=== PATIENT | female | born 1975 | race Caucasian/White ===

== ENCOUNTER 2020-06-06 14:53 | Inpatient (IN) | payer OTHER ==
[2020-06-06] MEDS ORDERED: cloNIDine HCL 0.1 MG TABLET PO PRN (15:52)
[2020-06-06] MEDS ORDERED: ONDANSETRON *ODT* 4 MG TABLET SL PRN (15:52)
[2020-06-06] MEDS ORDERED: MAGNESIUM HYDROX 2400MG/30ML ORAL SUSPENSION 30 ML CUP PO PRN (15:52)
[2020-06-06] MEDS ORDERED: ACETAMINOPHEN 325 MG TABLET (FP) PO PRN (15:52)
[2020-06-06] MEDS ORDERED: NICOTINE POLACRILEX 2 MG GUM BUC PRN (15:52)
[2020-06-06] MEDS ORDERED: MAGNESIUM CITRATE 300 ML BOTTLE PO PRN (15:52)
[2020-06-06] MEDS ORDERED: MAG HYDROX/AL HYDROX/SIMETH 30 ML UNIT-DOSE CUP PO PRN (15:52)
[2020-06-06] MEDS ORDERED: BISMUTH SUBSALICYLATE 524 MG/30 ML UD PO PRN (15:52)
[2020-06-06] MEDS ORDERED: MENTHOL/PHENOL 1 EACH UD MM PRN (15:52)
[2020-06-06 16:15] VITALS: BMI 24.3
[2020-06-06] MEDS ORDERED: METHADONE HCL 10 MG TABLET (FOR DETOX USE ONLY) PO ONE (17:15)
[2020-06-06] MEDS: diazePAM 5 MG TABLET PO PRN (17:28)
[2020-06-06] MEDS: NICOTINE 21 MG/24 HOURS TOPICAL PATCH TD SCH (17:29)
[2020-06-06] MEDS: METHOCARBAMOL 500 MG TABLET PO PRN (17:29)
[2020-06-06] MEDS: hydrOXYzine PAMOATE 25 MG CAPSULE (FP) PO SCH ×2 (17:57→22:13)
[2020-06-06] MEDS: APIXABAN 5 MG TABLET PO SCH (22:13)
[2020-06-06] MEDS: THIAMINE HCL 100 MG TABLET (FP) PO SCH (22:13)
[2020-06-06] MEDS: GABAPENTIN 300 MG CAPSULE PO SCH (22:13)
[2020-06-06] MEDS: diazePAM 5 MG TABLET PO SCH (22:13)
[2020-06-06] MEDS: MELATONIN 5 MG TABLETS PO SCH (22:13)
[2020-06-07] MEDS: ACETAMINOPHEN 325 MG TABLET (FP) PO PRN (01:51)
[2020-06-07] MEDS: METHOCARBAMOL 500 MG TABLET PO PRN ×3 (01:51→17:01)
[2020-06-07] MEDS: hydrOXYzine PAMOATE 25 MG CAPSULE (FP) PO SCH ×5 (06:02→22:28)
[2020-06-07] MEDS: diazePAM 5 MG TABLET PO SCH ×4 (06:02→22:33)
[2020-06-07] MEDS: LEVOTHYROXINE NA 75 MCG TABLET (FP) PO SCH (06:02)
[2020-06-07] MEDS: GABAPENTIN 300 MG CAPSULE PO SCH ×3 (06:02→22:27)
[2020-06-07] MEDS ORDERED: METHADONE HCL 10 MG TABLET (FOR DETOX USE ONLY) ONE (08:49)
[2020-06-07] MEDS ORDERED: METHADONE HCL 5 MG TABLET (FOR DETOX USE ONLY) ONE (08:49)
[2020-06-07] MEDS ORDERED: METHADONE (DETOX) 20 MG, METHADONE (DETOX) 5 MG PO ONE (10:00)
[2020-06-07] MEDS: PRENATAL VITAMINS W/ FOLIC ACID TABLET (FP) PO SCH (10:11)
[2020-06-07] MEDS: APIXABAN 5 MG TABLET PO SCH ×2 (10:11→22:28)
[2020-06-07] MEDS: NICOTINE 21 MG/24 HOURS TOPICAL PATCH TD SCH (10:13)
[2020-06-07 11:11] LABS: HEMOGLOBIN 9.9 GM/dL (10.7-15.3); MCH 24.3 pg (25.7-33.7); MCHC 31.9 g/dl (32.0-36.0); MEAN CELL VOLUME 76.1 fl (80-96); MEAN PLT VOLUME 8.9 fl (7.5-11.1); PLATELET COUNT 274 K/MM3 (134-434); POTASSIUM 3.8 mmol/L (3.5-5.1); RBC 4.07 M/mm3 (3.60-5.2); RDW 17.9 % (11.6-15.6); WHITE BLOOD COUNT 4.3 K/mm3 (4.0-10.0)
[2020-06-07 11:13] LABS: ALBUMIN 3.4 g/dl (3.4-5.0); BLOOD UREA NITROGEN 7.5 mg/dL (7-18); CALCIUM 8.7 mg/dL (8.5-10.1)
[2020-06-07 11:18] LABS: BILIRUBIN,TOTAL 0.3 mg/dL (0.2-1); TOT PROT 7.2 g/dl (6.4-8.2)
[2020-06-07] MEDS: diazePAM 5 MG TABLET PO PRN ×2 (12:20→19:38)
[2020-06-07] MEDS: IBUPROFEN 400 MG TABLET (FP) PO PRN ×2 (12:21→19:33)
[2020-06-07] MEDS: THIAMINE HCL 100 MG TABLET (FP) PO SCH (22:27)
[2020-06-07] MEDS: OLANZapine 5 MG TABLET PO SCH (22:27)
[2020-06-07] MEDS: MELATONIN 5 MG TABLETS PO SCH (22:28)
[2020-06-07] MEDS: DOXEPIN HCL 25 MG CAPSULE PO SCH (22:45)
[2020-06-08] MEDS: METHOCARBAMOL 500 MG TABLET PO PRN ×2 (04:24→22:16)
[2020-06-08] MEDS: diazePAM 5 MG TABLET PO PRN ×3 (04:24→15:26)
[2020-06-08] MEDS: ACETAMINOPHEN 325 MG TABLET (FP) PO PRN (04:25)
[2020-06-08] MEDS: hydrOXYzine PAMOATE 25 MG CAPSULE (FP) PO SCH ×2 (05:45→09:40)
[2020-06-08] MEDS: diazePAM 5 MG TABLET PO SCH ×3 (05:45→22:13)
[2020-06-08] MEDS: GABAPENTIN 300 MG CAPSULE PO SCH ×3 (05:45→22:14)
[2020-06-08] MEDS: LEVOTHYROXINE NA 75 MCG TABLET (FP) PO SCH (06:11)
[2020-06-08] MEDS: PRENATAL VITAMINS W/ FOLIC ACID TABLET (FP) PO SCH (09:39)
[2020-06-08] MEDS: APIXABAN 5 MG TABLET PO SCH ×2 (09:39→22:14)
[2020-06-08] MEDS: IBUPROFEN 400 MG TABLET (FP) PO PRN ×2 (09:39→15:26)
[2020-06-08] MEDS: CITALOPRAM HYDROBROMIDE 10 MG TABLET PO SCH (09:39)
[2020-06-08] MEDS: NICOTINE 21 MG/24 HOURS TOPICAL PATCH TD SCH (09:40)
[2020-06-08] MEDS ORDERED: METHADONE HCL 10 MG TABLET (FOR DETOX USE ONLY) PO ONE (10:00)
[2020-06-08] MEDS: FERROUS SO4 325 MG TABLET (FP) PO SCH (17:19)
[2020-06-08] MEDS: hydrOXYzine PAMOATE 25 MG CAPSULE (FP) PO PRN ×2 (17:20→22:14)
[2020-06-08] MEDS: THIAMINE HCL 100 MG TABLET (FP) PO SCH (22:14)
[2020-06-08] MEDS: DOXEPIN HCL 25 MG CAPSULE PO SCH (22:14)
[2020-06-08] MEDS: MELATONIN 5 MG TABLETS PO SCH (22:14)
[2020-06-08] MEDS: OLANZapine 5 MG TABLET PO SCH (22:14)
[2020-06-09] MEDS: diazePAM 5 MG TABLET PO PRN ×3 (01:01→14:31)
[2020-06-09] MEDS: IBUPROFEN 400 MG TABLET (FP) PO PRN (01:02)
[2020-06-09] MEDS: GABAPENTIN 300 MG CAPSULE PO SCH ×3 (05:35→22:08)
[2020-06-09] MEDS: diazePAM 5 MG TABLET PO SCH ×2 (05:35→17:07)
[2020-06-09] MEDS: LEVOTHYROXINE NA 25 MCG TABLET (FP) PO SCH (06:16)
[2020-06-09] MEDS: FERROUS SO4 325 MG TABLET (FP) PO SCH ×3 (07:48→17:07)
[2020-06-09] MEDS ORDERED: METHADONE HCL 10 MG TABLET (FOR DETOX USE ONLY) ONE (09:11)
[2020-06-09] MEDS ORDERED: METHADONE HCL 5 MG TABLET (FOR DETOX USE ONLY) ONE (09:12)
[2020-06-09] MEDS ORDERED: METHADONE (DETOX) 10 MG, METHADONE (DETOX) 5 MG PO ONE (10:00)
[2020-06-09] MEDS: APIXABAN 5 MG TABLET PO SCH ×2 (10:25→22:07)
[2020-06-09] MEDS: ACETAMINOPHEN 325 MG TABLET (FP) PO PRN (10:25)
[2020-06-09] MEDS: CITALOPRAM HYDROBROMIDE 10 MG TABLET PO SCH (10:25)
[2020-06-09] MEDS: PRENATAL VITAMINS W/ FOLIC ACID TABLET (FP) PO SCH (10:25)
[2020-06-09] MEDS: NICOTINE 21 MG/24 HOURS TOPICAL PATCH TD SCH (10:44)
[2020-06-09] MEDS: LIDOCAINE 5% TOPICAL PATCH TP SCH (12:29)
[2020-06-09] MEDS: ERYTHROMYCIN 0.5% OPHTHALMIC OINTMENT 3.5 GM TUBE OD SCH (12:29)
[2020-06-09] MEDS: MELATONIN 5 MG TABLETS PO SCH (22:07)
[2020-06-09] MEDS: DOXEPIN HCL 25 MG CAPSULE PO SCH (22:07)
[2020-06-09] MEDS: OLANZapine 5 MG TABLET PO SCH (22:07)
[2020-06-09] MEDS: THIAMINE HCL 100 MG TABLET (FP) PO SCH (22:07)
[2020-06-09] MEDS: LIDOCAINE PATCH REMOVAL MC SCH (22:08)
[2020-06-10] MEDS: IBUPROFEN 400 MG TABLET (FP) PO PRN ×2 (05:43→13:52)
[2020-06-10] MEDS: GABAPENTIN 300 MG CAPSULE PO SCH ×3 (05:44→22:03)
[2020-06-10] MEDS ORDERED: diazePAM 5 MG TABLET PO ONE (06:00)
[2020-06-10] MEDS: LEVOTHYROXINE NA 25 MCG TABLET (FP) PO SCH (06:57)
[2020-06-10] MEDS: FERROUS SO4 325 MG TABLET (FP) PO SCH ×3 (07:01→17:23)
[2020-06-10] MEDS: PRENATAL VITAMINS W/ FOLIC ACID TABLET (FP) PO SCH (09:26)
[2020-06-10] MEDS: CITALOPRAM HYDROBROMIDE 10 MG TABLET PO SCH (09:26)
[2020-06-10] MEDS: APIXABAN 5 MG TABLET PO SCH ×2 (09:26→22:06)
[2020-06-10] MEDS: NICOTINE 21 MG/24 HOURS TOPICAL PATCH TD SCH (09:27)
[2020-06-10] MEDS: LIDOCAINE 5% TOPICAL PATCH TP SCH (09:27)
[2020-06-10] MEDS: ERYTHROMYCIN 0.5% OPHTHALMIC OINTMENT 3.5 GM TUBE OD SCH (09:28)
[2020-06-10] MEDS ORDERED: METHADONE HCL 10 MG TABLET (FOR DETOX USE ONLY) PO ONE (10:00)
[2020-06-10 12:00] LABS: BASO % 0.6 % (0-2.0); EOS % 11.1 % (0-4.5); HEMATOCRIT 30.5 % (32.4-45.2); HEMOGLOBIN 9.8 GM/dL (10.7-15.3); LYMPH % 44.6 % (8-40); MCH 24.1 pg (25.7-33.7); MCHC 32.2 g/dl (32.0-36.0); MEAN CELL VOLUME 74.7 fl (80-96); MEAN PLT VOLUME 8.6 fl (7.5-11.1); MONO % 9.6 % (3.8-10.2); NEUT % 34.1 % (42.8-82.8); PLATELET COUNT 259 K/MM3 (134-434); RBC 4.08 M/mm3 (3.60-5.2); RDW 17.4 % (11.6-15.6); WHITE BLOOD COUNT 4.3 K/mm3 (4.0-10.0)
[2020-06-10] MEDS: hydrOXYzine PAMOATE 25 MG CAPSULE (FP) PO PRN ×2 (15:27→19:32)
[2020-06-10] MEDS: METHOCARBAMOL 500 MG TABLET PO PRN (22:03)
[2020-06-10] MEDS: THIAMINE HCL 100 MG TABLET (FP) PO SCH (22:04)
[2020-06-10] MEDS: MELATONIN 5 MG TABLETS PO SCH (22:04)
[2020-06-10] MEDS: DOXEPIN HCL 25 MG CAPSULE PO SCH (22:04)
[2020-06-10] MEDS: LIDOCAINE PATCH REMOVAL MC SCH (22:05)
[2020-06-10] MEDS: OLANZapine 5 MG TABLET PO SCH (22:06)
[2020-06-11] MEDS: GABAPENTIN 300 MG CAPSULE PO SCH (05:35)
[2020-06-11] MEDS ORDERED: METHADONE HCL 5 MG TABLET (FOR DETOX USE ONLY) PO ONE (06:00)
[2020-06-11 06:14] VITALS: BP 116/72; PULSE 81; TEMP 98.1
[2020-06-11] MEDS: FERROUS SO4 325 MG TABLET (FP) PO SCH (07:48)
[2020-06-11] MEDS: LEVOTHYROXINE NA 25 MCG TABLET (FP) PO SCH (07:48)
== END 2020-06-11 08:42 | disposition home or self-care (01) | DRG 773 ==
LOC: YASAS 14:53 → Y3N 16:14
PROVIDERS: ADMIT Allergy & Immunology; ATTEND Allergy & Immunology
PROC: HZ2ZZZZ Detoxification Services for Substance Abuse Treatment (ICD-10-PCS; principal; 2020-06-06)
DX: F11.23 Opioid dependence with withdrawal (principal); F13.230 Sedative, hypnotic or anxiolytic dependence with withdrawal, uncomplicated; F14.20 Cocaine dependence, uncomplicated; F17.210 Nicotine dependence, cigarettes, uncomplicated; F25.9 Schizoaffective disorder, unspecified; F41.9 Anxiety disorder, unspecified; F32.9 Major depressive disorder, single episode, unspecified; D64.9 Anemia, unspecified; E03.9 Hypothyroidism, unspecified; G62.9 Polyneuropathy, unspecified; G47.00 Insomnia, unspecified; M54.5 Low back pain; B18.2 Chronic viral hepatitis C; R73.9 Hyperglycemia, unspecified; Z86.718 Personal history of other venous thrombosis and embolism; Z79.01 Long term (current) use of anticoagulants; Z91.410 Personal history of adult physical and sexual abuse; Z86.19 Personal history of other infectious and parasitic diseases; Z91.5 Personal history of self-harm; Z56.0 Unemployment, unspecified; Z59.0 Homelessness
CPT/HCPCS: 36415; 80053; 81025; 82947; 85025; 85027; 86780; 93005; 93010; C9803; U0003

== ENCOUNTER 2020-11-22 11:15 | Inpatient (IN) | payer OTHER ==
[2020-11-22 11:49] VITALS: BMI 24.7
[2020-11-22] MEDS ORDERED: MENTHOL/PHENOL 1 EACH UD MM PRN (14:41)
[2020-11-22] MEDS ORDERED: METHADONE HCL 10 MG TABLET (FOR DETOX USE ONLY) PO ONE (14:41)
[2020-11-22] MEDS ORDERED: BISMUTH SUBSALICYLATE 524 MG/30 ML PO PRN (14:41)
[2020-11-22] MEDS ORDERED: IBUPROFEN 400 MG TABLET (FP) PO PRN (14:41)
[2020-11-22] MEDS ORDERED: MAGNESIUM CITRATE 300 ML BOTTLE PO PRN (14:41)
[2020-11-22] MEDS ORDERED: ONDANSETRON *ODT* 4 MG TABLET SL PRN (14:41)
[2020-11-22] MEDS ORDERED: MAGNESIUM HYDROX 2400MG/30ML ORAL SUSPENSION 30 ML CUP PO PRN (14:41)
[2020-11-22] MEDS ORDERED: MAG HYDROX/AL HYDROX/SIMETH 30 ML UNIT-DOSE CUP PO PRN (14:41)
[2020-11-22] MEDS ORDERED: NICOTINE POLACRILEX 2 MG GUM BUC PRN (14:41)
[2020-11-22] MEDS ORDERED: ACETAMINOPHEN 325 MG TABLET (FP) PO PRN (14:41)
[2020-11-22] MEDS: FERROUS SO4 325 MG TABLET (FP) PO SCH (17:59)
[2020-11-22] MEDS: hydrOXYzine PAMOATE 25 MG CAPSULE (FP) PO SCH ×2 (17:59→22:24)
[2020-11-22] MEDS: CEPHALEXIN MONOHYDRATE 500 MG CAPSULE (UD) PO SCH ×2 (17:59→23:46)
[2020-11-22] MEDS: diazePAM 5 MG TABLET PO SCH ×2 (17:59→22:25)
[2020-11-22] MEDS: THIAMINE HCL 100 MG TABLET (FP) PO SCH (22:24)
[2020-11-22] MEDS: APIXABAN 5 MG TABLET PO SCH (22:24)
[2020-11-22] MEDS: MELATONIN 5 MG TABLETS PO SCH (22:24)
[2020-11-23] MEDS: diazePAM 5 MG TABLET PO PRN ×2 (02:36→15:33)
[2020-11-23] MEDS: diazePAM 5 MG TABLET PO SCH ×4 (05:48→22:20)
[2020-11-23] MEDS: CEPHALEXIN MONOHYDRATE 500 MG CAPSULE (UD) PO SCH ×3 (05:48→17:46)
[2020-11-23] MEDS: hydrOXYzine PAMOATE 25 MG CAPSULE (FP) PO SCH ×2 (05:49→10:20)
[2020-11-23] MEDS: FERROUS SO4 325 MG TABLET (FP) PO SCH ×3 (07:20→17:46)
[2020-11-23] MEDS: LEVOTHYROXINE NA 25 MCG TABLET (FP) PO SCH (07:20)
[2020-11-23] MEDS ORDERED: METHADONE HCL 10 MG TABLET (FOR DETOX USE ONLY) ONE (09:06)
[2020-11-23] MEDS ORDERED: METHADONE HCL 5 MG TABLET (FOR DETOX USE ONLY) ONE (09:07)
[2020-11-23] MEDS ORDERED: METHADONE (DETOX) 20 MG, METHADONE (DETOX) 5 MG PO ONE (10:00)
[2020-11-23] MEDS: PRENATAL VITAMINS W/ FOLIC ACID TABLET (FP) PO SCH (10:20)
[2020-11-23] MEDS: NICOTINE 21 MG/24 HOURS TOPICAL PATCH TD SCH (10:20)
[2020-11-23] MEDS: APIXABAN 5 MG TABLET PO SCH ×2 (10:21→22:19)
[2020-11-23 10:33] LABS: HEMATOCRIT 28.1 % (32.4-45.2); HEMOGLOBIN 8.7 GM/dL (10.7-15.3); MCH 23.3 pg (25.7-33.7); MEAN CELL VOLUME 75.2 fl (80-96); MEAN PLT VOLUME 8.2 fl (7.5-11.1); PLATELET COUNT 288 10^3/uL (134-434); RBC 3.74 M/mm3 (3.60-5.2); RDW 17.9 % (11.6-15.6); WHITE BLOOD COUNT 3.5 K/mm3 (4.0-10.0)
[2020-11-23 11:06] LABS: ALBUMIN 2.8 g/dl (3.4-5.0); BLOOD UREA NITROGEN 4.8 mg/dL (7-18)
[2020-11-23 11:09] LABS: CREATININE 0.8 mg/dL (0.55-1.3)
[2020-11-23 11:10] LABS: BILIRUBIN,TOTAL 0.2 mg/dL (0.2-1); TOT PROT 6.2 g/dl (6.4-8.2)
[2020-11-23 11:14] LABS: CALCIUM 8.4 mg/dL (8.5-10.1)
[2020-11-23] MEDS: THIAMINE HCL 100 MG TABLET (FP) PO SCH (22:19)
[2020-11-23] MEDS: MELATONIN 5 MG TABLETS PO SCH (22:19)
[2020-11-23] MEDS: cloNIDine HCL 0.1 MG TABLET PO PRN (22:20)
[2020-11-24] MEDS: diazePAM 5 MG TABLET PO PRN ×3 (01:15→16:35)
[2020-11-24] MEDS: diazePAM 5 MG TABLET PO SCH ×3 (05:52→22:29)
[2020-11-24] MEDS: CEPHALEXIN MONOHYDRATE 500 MG CAPSULE (UD) PO SCH ×5 (05:53→23:00)
[2020-11-24] MEDS: LEVOTHYROXINE NA 25 MCG TABLET (FP) PO SCH (06:04)
[2020-11-24] MEDS: FERROUS SO4 325 MG TABLET (FP) PO SCH ×3 (07:40→17:45)
[2020-11-24] MEDS ORDERED: METHADONE HCL 10 MG TABLET (FOR DETOX USE ONLY) PO ONE (10:00)
[2020-11-24 10:38] LABS: HEMATOCRIT 29.5 % (32.4-45.2); HEMOGLOBIN 9.2 GM/dL (10.7-15.3); MCH 23.4 pg (25.7-33.7); MCHC 31.2 g/dl (32.0-36.0); MEAN CELL VOLUME 74.9 fl (80-96); MEAN PLT VOLUME 8.4 fl (7.5-11.1); PLATELET COUNT 311 10^3/uL (134-434); RBC 3.94 M/mm3 (3.60-5.2); WHITE BLOOD COUNT 4.3 K/mm3 (4.0-10.0)
[2020-11-24] MEDS: NICOTINE 21 MG/24 HOURS TOPICAL PATCH TD SCH (10:44)
[2020-11-24] MEDS: PRENATAL VITAMINS W/ FOLIC ACID TABLET (FP) PO SCH (10:44)
[2020-11-24] MEDS: APIXABAN 5 MG TABLET PO SCH ×2 (10:44→22:29)
[2020-11-24] MEDS: METHOCARBAMOL 500 MG TABLET PO PRN (10:44)
[2020-11-24] MEDS: ACETAMINOPHEN 325 MG TABLET (FP) PO PRN (16:34)
[2020-11-24] MEDS: THIAMINE HCL 100 MG TABLET (FP) PO SCH (22:29)
[2020-11-24] MEDS: MELATONIN 5 MG TABLETS PO SCH (22:29)
[2020-11-24] MEDS: cloNIDine HCL 0.1 MG TABLET PO PRN (22:50)
[2020-11-25] MEDS: diazePAM 5 MG TABLET PO SCH ×2 (05:56→17:39)
[2020-11-25] MEDS: CEPHALEXIN MONOHYDRATE 500 MG CAPSULE (UD) PO SCH ×4 (05:56→23:58)
[2020-11-25] MEDS: LEVOTHYROXINE NA 25 MCG TABLET (FP) PO SCH (06:43)
[2020-11-25] MEDS: FERROUS SO4 325 MG TABLET (FP) PO SCH ×3 (07:06→17:39)
[2020-11-25] MEDS ORDERED: METHADONE HCL 10 MG TABLET (FOR DETOX USE ONLY) ONE (08:55)
[2020-11-25] MEDS ORDERED: METHADONE HCL 5 MG TABLET (FOR DETOX USE ONLY) ONE (08:55)
[2020-11-25] MEDS: APIXABAN 5 MG TABLET PO SCH ×2 (09:48→22:20)
[2020-11-25] MEDS: PRENATAL VITAMINS W/ FOLIC ACID TABLET (FP) PO SCH (09:48)
[2020-11-25] MEDS: NICOTINE 21 MG/24 HOURS TOPICAL PATCH TD SCH (09:52)
[2020-11-25] MEDS: diazePAM 5 MG TABLET PO PRN (09:55)
[2020-11-25] MEDS ORDERED: METHADONE (DETOX) 10 MG, METHADONE (DETOX) 5 MG PO ONE (10:00)
[2020-11-25] MEDS ORDERED: DICYCLOMINE HCL 10 MG CAPSULE PO PRN (12:43)
[2020-11-25] MEDS: ACETAMINOPHEN 325 MG TABLET (FP) PO PRN ×2 (14:38→22:22)
[2020-11-25] MEDS: METHOCARBAMOL 500 MG TABLET PO PRN (15:19)
[2020-11-25] MEDS: THIAMINE HCL 100 MG TABLET (FP) PO SCH (22:20)
[2020-11-25] MEDS: MELATONIN 5 MG TABLETS PO SCH (22:20)
[2020-11-25] MEDS: hydrOXYzine PAMOATE 25 MG CAPSULE (FP) PO PRN (22:21)
[2020-11-26] MEDS: hydrOXYzine PAMOATE 25 MG CAPSULE (FP) PO PRN ×2 (04:22→18:07)
[2020-11-26] MEDS ORDERED: diazePAM 5 MG TABLET PO ONE (06:00)
[2020-11-26] MEDS: LEVOTHYROXINE NA 25 MCG TABLET (FP) PO SCH (06:21)
[2020-11-26] MEDS: CEPHALEXIN MONOHYDRATE 500 MG CAPSULE (UD) PO SCH ×4 (06:21→23:02)
[2020-11-26] MEDS: FERROUS SO4 325 MG TABLET (FP) PO SCH ×3 (07:00→18:06)
[2020-11-26] MEDS: NICOTINE 21 MG/24 HOURS TOPICAL PATCH TD SCH (09:52)
[2020-11-26] MEDS: APIXABAN 5 MG TABLET PO SCH ×2 (09:52→23:02)
[2020-11-26] MEDS: PRENATAL VITAMINS W/ FOLIC ACID TABLET (FP) PO SCH (09:54)
[2020-11-26] MEDS ORDERED: METHADONE HCL 10 MG TABLET (FOR DETOX USE ONLY) PO ONE (10:00)
[2020-11-26] MEDS ORDERED: LIDOCAINE 5% TOPICAL PATCH TP ONE (15:04)
[2020-11-26] MEDS ORDERED: LIDOCAINE PATCH REMOVAL MC SCH (22:00)
[2020-11-26] MEDS: THIAMINE HCL 100 MG TABLET (FP) PO SCH (23:02)
[2020-11-26] MEDS: MELATONIN 5 MG TABLETS PO SCH (23:02)
[2020-11-27] MEDS: hydrOXYzine PAMOATE 25 MG CAPSULE (FP) PO PRN (02:46)
[2020-11-27] MEDS: CEPHALEXIN MONOHYDRATE 500 MG CAPSULE (UD) PO SCH (06:00)
[2020-11-27] MEDS ORDERED: METHADONE HCL 5 MG TABLET (FOR DETOX USE ONLY) PO ONE (06:00)
[2020-11-27 06:22] VITALS: BP 101/61; PULSE 52; TEMP 97
[2020-11-27] MEDS: LEVOTHYROXINE NA 25 MCG TABLET (FP) PO SCH (06:34)
[2020-11-27] MEDS: FERROUS SO4 325 MG TABLET (FP) PO SCH (08:42)
[2020-11-27] MEDS: APIXABAN 5 MG TABLET PO SCH (09:03)
[2020-11-27] MEDS: NICOTINE 21 MG/24 HOURS TOPICAL PATCH TD SCH (09:03)
[2020-11-27] MEDS: PRENATAL VITAMINS W/ FOLIC ACID TABLET (FP) PO SCH (09:03)
== END 2020-11-27 09:12 | disposition home or self-care (01) | DRG 773 ==
LOC: YASAS 11:15 → Y3N 16:59
PROVIDERS: ADMIT Allergy & Immunology; ATTEND Allergy & Immunology
PROC: HZ2ZZZZ Detoxification Services for Substance Abuse Treatment (ICD-10-PCS; principal; 2020-11-22)
DX: F11.23 Opioid dependence with withdrawal (principal); F13.230 Sedative, hypnotic or anxiolytic dependence with withdrawal, uncomplicated; F14.10 Cocaine abuse, uncomplicated; F17.210 Nicotine dependence, cigarettes, uncomplicated; F51.05 Insomnia due to other mental disorder; F41.9 Anxiety disorder, unspecified; F32.9 Major depressive disorder, single episode, unspecified; F19.24 Other psychoactive substance dependence with psychoactive substance-induced mood disorder; E03.9 Hypothyroidism, unspecified; L03.113 Cellulitis of right upper limb; G62.9 Polyneuropathy, unspecified; Z86.718 Personal history of other venous thrombosis and embolism; Z91.14 Patient's other noncompliance with medication regimen; Z86.69 Personal history of other diseases of the nervous system and sense organs; Z56.0 Unemployment, unspecified
CPT/HCPCS: 36415; 80053; 81025; 85027; 86780; C9803; J0735; U0003; U0005

== ENCOUNTER 2022-08-30 16:21 | Inpatient (IN) | payer OTHER ==
[2022-08-30 17:16] VITALS: BMI 27.6
[2022-08-30] MEDS ORDERED: IBUPROFEN 400 MG TABLET (FP) PO PRN (17:59)
[2022-08-30] MEDS ORDERED: MAG HYDROX/AL HYDROX/SIMETH 30 ML UNIT-DOSE CUP PO PRN (17:59)
[2022-08-30] MEDS ORDERED: guaiFENesin 600 MG TABLET.ER (FP) PO PRN (17:59)
[2022-08-30] MEDS ORDERED: BENZOCAINE/MENTHOL (CHLORASEPTIC ) LOZENGE MM PRN (17:59)
[2022-08-30] MEDS ORDERED: POLYETHYLENE GLYCOL (HEALTHYLAX) 3350 17 GM PACKET PO PRN (17:59)
[2022-08-30] MEDS ORDERED: BENZONATATE 200 MG CAPSULE PO PRN (17:59)
[2022-08-30] MEDS ORDERED: P-EPHED 60MG/TRIPROLIDI 2.5MG TABLET PO PRN (17:59)
[2022-08-30] MEDS ORDERED: ONDANSETRON *ODT* 4 MG TABLET SL PRN (17:59)
[2022-08-30] MEDS ORDERED: NICOTINE 10 MG CARTRIDGE (INHALER) IH PRN (17:59)
[2022-08-30] MEDS ORDERED: MAGNESIUM HYDROX 2400MG/30ML ORAL SUSPENSION 30 ML CUP PO PRN (17:59)
[2022-08-30] MEDS ORDERED: BISMUTH SUBSALICYLATE 524 MG/30 ML PO PRN (17:59)
[2022-08-30] MEDS ORDERED: NALOXONE HCL (KLOXXADO) 8 MG SPRAY NS PRN (17:59)
[2022-08-30] MEDS ORDERED: ACETAMINOPHEN 325 MG TABLET (FP) PO PRN (17:59)
[2022-08-30] MEDS ORDERED: hydrOXYzine PAMOATE 25 MG CAPSULE (FP) PO PRN (17:59)
[2022-08-30] MEDS ORDERED: DICYCLOMINE HCL 10 MG CAPSULE PO PRN (17:59)
[2022-08-30] MEDS ORDERED: NALOXONE HCL 0.4 MG/ML VIAL IM PRN (17:59)
[2022-08-30] MEDS ORDERED: LOPERAMIDE HCL 2 MG CAPSULE PO PRN (17:59)
[2022-08-30] MEDS: LIDOCAINE 5% TOPICAL PATCH TP SCH (19:08)
[2022-08-30] MEDS: ASPIRIN 325 MG TABLET PO SCH (19:10)
[2022-08-30] MEDS: IBUPROFEN 600 MG TABLET (FP) PO PRN (19:18)
[2022-08-30] MEDS ORDERED: diphenhydrAMINE HCL 25 MG CAPSULE (FP) PO ONE (21:52)
[2022-08-30] MEDS: SULFAMETHOXAZOLE/TRIMETHOPRIM 800MG/160MG D.S. TABLET PO SCH (22:20)
[2022-08-30] MEDS: diazePAM 5 MG TABLET PO PRN (22:20)
[2022-08-30] MEDS: MELATONIN 5 MG TABLETS PO PRN (22:20)
[2022-08-30] MEDS: BACITRACIN 0.9 GM PACKET TP SCH (22:20)
[2022-08-30] MEDS: levETIRAcetam 500 MG TABLET (FP) PO SCH (22:20)
[2022-08-30] MEDS: THIAMINE HCL 100 MG TABLET (FP) PO SCH (22:21)
[2022-08-30] MEDS: LIDOCAINE PATCH REMOVAL MC SCH (22:24)
[2022-08-31] MEDS: diazePAM 5 MG TABLET PO PRN ×4 (03:48→20:36)
[2022-08-31] MEDS: PRENATAL VITAMINS W/ FOLIC ACID TABLET (FP) PO SCH (10:26)
[2022-08-31] MEDS: SULFAMETHOXAZOLE/TRIMETHOPRIM 800MG/160MG D.S. TABLET PO SCH ×2 (10:29→23:24)
[2022-08-31] MEDS: levETIRAcetam 500 MG TABLET (FP) PO SCH ×2 (10:29→23:24)
[2022-08-31] MEDS: BACITRACIN 0.9 GM PACKET TP SCH ×2 (10:30→23:25)
[2022-08-31] MEDS: ASPIRIN 325 MG TABLET PO SCH (10:30)
[2022-08-31] MEDS: NICOTINE 14 MG/24 HOURS TOPICAL PATCH TD SCH (10:31)
[2022-08-31] MEDS: LIDOCAINE 5% TOPICAL PATCH TP SCH (10:40)
[2022-08-31] MEDS ORDERED: cloNIDine HCL 0.1 MG TABLET PO PRN (10:56)
[2022-08-31] MEDS ORDERED: methaDONE HCL 10 MG TABLET (FOR DETOX USE ONLY) PO ONE (10:56)
[2022-08-31] MEDS: LEVOTHYROXINE NA 25 MCG TABLET (FP) PO SCH (11:20)
[2022-08-31] MEDS: diazePAM 5 MG TABLET PO SCH ×3 (11:25→23:25)
[2022-08-31] MEDS: diphenhydrAMINE HCL 25 MG CAPSULE (FP) PO PRN (11:55)
[2022-08-31] MEDS: MELATONIN 5 MG TABLETS PO PRN (23:23)
[2022-08-31] MEDS: THIAMINE HCL 100 MG TABLET (FP) PO SCH (23:24)
[2022-08-31] MEDS: LIDOCAINE PATCH REMOVAL MC SCH (23:25)
[2022-09-01] MEDS: diazePAM 5 MG TABLET PO PRN (04:34)
[2022-09-01] MEDS: diazePAM 5 MG TABLET PO SCH ×4 (05:08→22:31)
[2022-09-01] MEDS: LEVOTHYROXINE NA 25 MCG TABLET (FP) PO SCH (06:16)
[2022-09-01] MEDS: SULFAMETHOXAZOLE/TRIMETHOPRIM 800MG/160MG D.S. TABLET PO SCH ×2 (10:29→22:32)
[2022-09-01] MEDS: BACITRACIN 0.9 GM PACKET TP SCH ×2 (10:29→22:35)
[2022-09-01] MEDS: NICOTINE 14 MG/24 HOURS TOPICAL PATCH TD SCH (10:30)
[2022-09-01] MEDS: LIDOCAINE 5% TOPICAL PATCH TP SCH (10:30)
[2022-09-01] MEDS: PRENATAL VITAMINS W/ FOLIC ACID TABLET (FP) PO SCH (10:30)
[2022-09-01] MEDS: ASPIRIN 325 MG TABLET PO SCH (10:32)
[2022-09-01] MEDS: levETIRAcetam 500 MG TABLET (FP) PO SCH ×2 (10:32→22:33)
[2022-09-01] MEDS: IBUPROFEN 600 MG TABLET (FP) PO PRN (19:15)
[2022-09-01] MEDS: diphenhydrAMINE HCL 25 MG CAPSULE (FP) PO PRN (19:16)
[2022-09-01] MEDS: MELATONIN 5 MG TABLETS PO PRN (22:32)
[2022-09-01] MEDS: METHOCARBAMOL 500 MG TABLET PO PRN (22:35)
[2022-09-01] MEDS: LIDOCAINE PATCH REMOVAL MC SCH (23:41)
[2022-09-01] MEDS: THIAMINE HCL 100 MG TABLET (FP) PO SCH (23:41)
[2022-09-02] MEDS: diphenhydrAMINE HCL 25 MG CAPSULE (FP) PO PRN ×2 (03:32→18:01)
[2022-09-02] MEDS: diazePAM 5 MG TABLET PO SCH ×3 (06:06→21:25)
[2022-09-02] MEDS: LEVOTHYROXINE NA 25 MCG TABLET (FP) PO SCH (06:07)
[2022-09-02] MEDS ORDERED: methaDONE HCL 10 MG TABLET (FOR DETOX USE ONLY) PO ONE (10:00)
[2022-09-02] MEDS: SULFAMETHOXAZOLE/TRIMETHOPRIM 800MG/160MG D.S. TABLET PO SCH ×2 (10:31→21:25)
[2022-09-02] MEDS: BACITRACIN 0.9 GM PACKET TP SCH ×2 (10:32→21:25)
[2022-09-02] MEDS: LIDOCAINE 5% TOPICAL PATCH TP SCH (10:33)
[2022-09-02] MEDS: NICOTINE 14 MG/24 HOURS TOPICAL PATCH TD SCH (10:33)
[2022-09-02] MEDS: PRENATAL VITAMINS W/ FOLIC ACID TABLET (FP) PO SCH (10:35)
[2022-09-02] MEDS: ASPIRIN 325 MG TABLET PO SCH (10:35)
[2022-09-02] MEDS: levETIRAcetam 500 MG TABLET (FP) PO SCH ×2 (10:36→21:25)
[2022-09-02 17:28] VITALS: RESP 18
[2022-09-02] MEDS: diazePAM 5 MG TABLET PO PRN (18:01)
[2022-09-02] MEDS: IBUPROFEN 600 MG TABLET (FP) PO PRN (20:44)
[2022-09-02] MEDS: THIAMINE HCL 100 MG TABLET (FP) PO SCH (21:26)
[2022-09-02] MEDS: METHOCARBAMOL 500 MG TABLET PO PRN (21:26)
[2022-09-02] MEDS: MELATONIN 5 MG TABLETS PO PRN (21:26)
[2022-09-02] MEDS: LIDOCAINE PATCH REMOVAL MC SCH (21:29)
[2022-09-03] MEDS: diphenhydrAMINE HCL 25 MG CAPSULE (FP) PO PRN (02:12)
[2022-09-03] MEDS ORDERED: diazePAM 5 MG TABLET PO SCH (06:00)
[2022-09-03] MEDS: LEVOTHYROXINE NA 25 MCG TABLET (FP) PO SCH (06:18)
[2022-09-03 08:53] VITALS: BP 145/98; PULSE 64; TEMP 97.7
[2022-09-03] MEDS: SULFAMETHOXAZOLE/TRIMETHOPRIM 800MG/160MG D.S. TABLET PO SCH (09:27)
[2022-09-03] MEDS: levETIRAcetam 500 MG TABLET (FP) PO SCH (09:27)
[2022-09-03] MEDS: LIDOCAINE 5% TOPICAL PATCH TP SCH (09:30)
[2022-09-03] MEDS: BACITRACIN 0.9 GM PACKET TP SCH (09:30)
[2022-09-03] MEDS: PRENATAL VITAMINS W/ FOLIC ACID TABLET (FP) PO SCH (09:30)
[2022-09-03] MEDS: ASPIRIN 325 MG TABLET PO SCH (09:30)
[2022-09-04] MEDS ORDERED: diazePAM 5 MG TABLET PO ONE (06:00)
[2022-09-04] MEDS ORDERED: methaDONE HCL 10 MG TABLET (FOR DETOX USE ONLY) PO ONE (10:00)
== END 2022-09-03 09:35 | disposition home or self-care (01) | DRG 773 ==
LOC: YASAS 16:21 → Y3N 18:33
PROVIDERS: ADMIT Allergy & Immunology; ATTEND Surgery
PROC: HZ2ZZZZ Detoxification Services for Substance Abuse Treatment (ICD-10-PCS; principal; 2022-08-30)
DX: F11.23 Opioid dependence with withdrawal (principal); F13.20 Sedative, hypnotic or anxiolytic dependence, uncomplicated; F14.10 Cocaine abuse, uncomplicated; F17.210 Nicotine dependence, cigarettes, uncomplicated; E03.9 Hypothyroidism, unspecified; Z28.310 Unvaccinated for COVID-19; Z28.9 Immunization not carried out for unspecified reason
CPT/HCPCS: 81025; 87811; 93005; 93010; C9803-CS; U0003; U0005